=== PATIENT | male | born 1935 | race African-American/Black ===

== ENCOUNTER 2020-12-19 18:54 | Emergency (ER) | payer OTHER ==
[2020-12-19] MEDS ORDERED: BAMLANIVIMAB 700 MG in SODIUM CHLORIDE 250 ML IVPB ONE (18:59)
[2020-12-19] MEDS ORDERED: ALBUTEROL SO4 HFA INHALER IH ONE ×2 (20:16→20:18)
[2020-12-19] MEDS ORDERED: DEXAMETHASONE SOD PHOSPHATE 10 MG/1 ML VIAL ONE (20:18)
[2020-12-19] MEDS ORDERED: DEXAMETHASONE SOD PHOSPHATE 10 MG/1 ML VIAL IVPUSH ONE (20:18)
[2020-12-19 20:24] LABS: HEMATOCRIT 36.8 % (35.4-49); HEMOGLOBIN 12.3 GM/dL (11.7-16.9); MCH 34.6 pg (25.7-33.7); MCHC 33.6 g/dl (32.0-35.9); MEAN CELL VOLUME 103.1 fl (80-96); MEAN PLT VOLUME 10.5 fl (7.5-11.1); PLATELET COUNT 125 K/MM3 (134-434); RBC 3.57 M/mm3 (4.00-5.60); RDW 13.2 % (11.9-15.9); WHITE BLOOD COUNT 7.6 K/mm3 (4.0-10.0)
[2020-12-19 20:34] LABS: POTASSIUM 4.3 mmol/L (3.5-5.1)
[2020-12-19 20:35] LABS: BLOOD UREA NITROGEN 21.2 mg/dL (7-18); CALCIUM 8.3 mg/dL (8.5-10.1)
[2020-12-19 20:39] LABS: CREATININE 0.8 mg/dL (0.55-1.3)
[2020-12-19 22:54] VITALS: BP 182/78; PULSE 74; TEMP 99.1
== END 2020-12-19 23:15 | disposition home or self-care (01) ==
LOC: JER 18:54 → JCOVINFU 18:54
PROC: 3E03329 Introduction of Other Anti-infective into Peripheral Vein, Percutaneous Approach (ICD-10-PCS; principal; 2020-12-19)
PROC: 3E033GC Introduction of Other Therapeutic Substance into Peripheral Vein, Percutaneous Approach (ICD-10-PCS; 2020-12-19)
DX: U07.1 COVID-19 (principal)
CPT/HCPCS: 36415; 71046-TC-FY; 80048; 85027; 99284-25; J1100; M0239; Q0239